=== PATIENT | female | born 1985 | race American Indian/Alaskan Native ===

== ENCOUNTER 2019-03-22 13:30 | Outpatient (CLI) | payer OTHER ==
--- NOTE | 2019-03-22 14:57 | Mammography Report ---
Screening mammogram: Baseline examination. Routine views demonstrate a dense fibroglandular pattern of the symmetric distribution. In the superior left breast there is a circumscribed slightly elongated nodule not identified in the CC projection. With this exception the findings bilaterally are unremarkable. CAD used. Impression: Left asymmetry. Recommendation: Spot compression imaging of the left breast and ultrasound if needed. BI-RADS CATEGORY: 0 = Needs additional imaging evaluation ACR BI-RADS MAMMOGRAPHIC CODES: 0 = Needs additional imaging evaluation; 1 = Negative; 2 = Benign; 3 = Probably benign; 4 = Suspicious; 5 = Malignant; 6 = Known biopsy-proven malignancy COMMENT: 1. Dense breast tissue, i.e., adenosis, fibrocystic changes, etc., may obscure an underlying neoplasm. 2. Approximately 10% of cancers are not detected with mammography. 3. A negative mammography report should not delay biopsy if a clinically suspicious mass is present.
== END 2019-03-22 13:31 | disposition home or self-care (01) ==
LOC: SPVWC 13:30
PROVIDERS: ATTEND Family Medicine
DX: Z12.31 Encounter for screening mammogram for malignant neoplasm of breast (principal)
CPT/HCPCS: 77067

== ENCOUNTER 2019-04-25 08:30 | Outpatient (CLI) | payer OTHER ==
--- NOTE | 2019-04-25 09:14 | Mammography Report ---
LEFT BREAST DIAGNOSTIC MAMMOGRAM HISTORY: Recall to evaluate a circumscribed nodule at Baseline screening. COMPARISON: 03/22/2019 FINDINGS: Breast Density: heterogeneously dense breast parenchymal pattern which somewhat lessens the sensitivi ty of the evaluation. Digital CC and MLO views of the left breast demonstrate an oval circumscribed mixed density structure in the upper breast. It has a fatty component and a notch system with a lymph node. IMPRESSION No mammographic evidence of malignancy. If the clinical examination remains stable, recommend bilateral screening mammograms beginning annual ly at age 40 per the current [employer] guidelines or at intervals appropriate for the patient's risk factors. BIRADS 1: Negative. According to the [employer], yearly mammograms are recommended starting at age 40 and continuing as long as a woman is in good health. Clinical Breast Exams should be part of a period ic health exam-about every 3 years for women in their 20s and 30s and every year for women 40 and ove r. Breast self exam is an option for women starting in their 20s. Any breast change noted on a breast self exam should be reported promptly to the patient's healthcare provider. Breast MRI is recommende d for women with an approximately 20-25% or greater lifetime risk of breast cancer, including women w ith a strong family history of breast or ovarian cancer and women who have been treated for Hodgkin's disease. A negative Mammography report should not discourage follow up or biopsy of a clinically significant f inding and/or abnormality. Dense breast tissue may obscure small neoplasms. Signer Name: Adal Pantoja MD Signed: 04/25/2019 9:10 AM Workstation Name: [id number]
== END 2019-04-25 08:31 | disposition home or self-care (01) ==
LOC: SPVWC 08:30
PROVIDERS: ATTEND Family Medicine
DX: R92.8 Other abnormal and inconclusive findings on diagnostic imaging of breast (principal)

== ENCOUNTER 2021-03-25 15:31 | Outpatient (CLI) | payer OTHER ==
--- NOTE | 2021-03-26 08:26 | Mammography Report ---
DIGITAL SCREENING MAMMOGRAM WITH CAD, 03/25/2021 CLINICAL INFORMATION / INDICATION: Routine screening mammography. SCREENING MAMMO TECHNIQUE: Digital bilateral 2D mammography was obtained in the craniocaudal and mediolateral obliqu e projections. This examination was interpreted with the benefit of Computer-Aided Detection analysis . COMPARISON: 03/22/2019 FINDINGS: Breast Density: The breasts are heterogeneously dense, which may obscure small masses. No dominant mass, suspicious calcifications, or architectural distortion in either breast. IMPRESSION: No mammographic evidence of malignancy. Follow up recommendation: Routine yearly BI-RADS Category 1: Negative. A "normal" or negative report should not discourage follow up or biopsy of a clinically significant f inding. A written summary of these findings will be mailed to the patient. The patient will be entered into a mammography reporting system which will generate a reminder letter for the patient's next appointmen t at the appropriate interval. The [employer] recommends yearly mammograms starting at age 40 and continuing as l merrick as a woman is in good health. Breast MRI is recommended for women with an approximate 20-25% or greater lifetime risk of breast cancer, including women with a strong family history of breast or ova quan cancer or who have been treated for Hodgkin's disease. Signer Name: Kayden Carmona MD Signed: 03/26/2021 8:22 AM Workstation Name: [id number]
== END 2021-03-25 15:32 | disposition home or self-care (01) ==
LOC: SPVWC 15:31
PROVIDERS: ATTEND Physician Assistant Medical
DX: Z12.31 Encounter for screening mammogram for malignant neoplasm of breast (principal)
CPT/HCPCS: 77067

== ENCOUNTER 2022-04-22 12:31 | Outpatient (CLI) | payer OTHER | END 2022-04-22 12:32 | disposition home or self-care (01) | LOC: MAMMO 12:31 | PROVIDERS: ATTEND Physician Assistant Medical | DX: Z12.31 Encounter for screening mammogram for malignant neoplasm of breast (principal) | CPT/HCPCS: 77067 ==